=== PATIENT | male | born 1950 | race Caucasian/White ===

== ENCOUNTER 2017-09-27 22:55 | Emergency (ER) | payer OTHER, MEDICAID ==
[~2017-09-27] VITALS: Ht 172.7 cm; Wt 86.2 kg
[~2017-09-27 22:55] MED LIST: ACET-787 PO; CAPT25TA10 PO; GABA400C PO; ORE25 PO
--- NOTE | 2017-09-27 22:55 | NUR ---
PT JONATHAN DESIR, PREBOOK. TAKEN TO CHAIR E
--- NOTE | 2017-09-27 22:55 | NUR ---
67/M BIB [place] [employer] FOR PRE-BOOK. REPORTS 6/10 CHEST PAIN, SUDDEN ONSET, PRESSURE AND SOB X1 DAY. ALL LUNG SOUNSD CBTA 16RR EVEN AND UNLABORED. NO RESPIRATORY DISTRESS NOTED AT THIS TIME, SKIN IS WARM AND DRY. PT ABLE TO SPEAK AT FULL LENGTH WITHOUT DIFFICULTIES. PMH: HTN
[2017-09-27 23:08] VITALS: BP 110/68
--- NOTE | 2017-09-27 23:25 | NUR ---
PT RETURN FROM XRAY
[2017-09-27 23:39] VITALS: BP 119/72
--- NOTE | 2017-09-27 23:39 | NUR ---
Patient discharged with v/s stable. Written and verbal after care instructions given and explained. Patient verbalized understanding. Police with in custody. All questions addressed prior to discharge. Advised to follow up with PMD.
== END 2017-09-27 23:39 ==
LOC: MED 22:55
DX: Z02.89 Encounter for other administrative examinations (principal); I25.2 Old myocardial infarction; I10 Essential (primary) hypertension
CPT/HCPCS: 71045; 93005; 99284

== ENCOUNTER 2018-01-09 10:29 | Emergency (ER) | payer OTHER, MEDICAID ==
[~2018-01-09] VITALS: Ht 172.7 cm; Wt 96.6 kg
[2018-01-09 10:37] VITALS: BP 197/115
--- NOTE | 2018-01-09 10:48 | NUR ---
PT AMBUALTES TO BED 8
--- NOTE | 2018-01-09 11:00 | NUR ---
PATIENT PRESENTS TO ED WITH COMPLAINTS OF RIGHT LOWER LEG PAIN AND SWELLING DUE TO ANKLE MONITOR THAT WAS PLACED ON RIGHT ANKLE. FOOT APPEARS RED AND SWOLLEN LEADING UP TO CALF. PATIENTS FOOT HAS VERY STRONG FOUL ODOR WITH PEELING SKIN. PATIENT REPORTS PROBLEM IS ONGOING BEGINNING WHEN IT WAS PLACED. CAP REFILL ON 3RD TOE MORE THAN 3 SECONDS. PT DENIES ANY FEVER, CP, SOB, OR COUGH AT THIS TIME; PATIENT STATES PAIN OF 10/10 AT THIS TIME; PATIENT POSITIONED FOR COMFORT; HOB ELEVATED; BEDRAILS UP X1; BED DOWN. ER MD MADE AWARE OF PT STATUS.
[2018-01-09] MEDS ORDERED: FUROSEMIDE 40 MG TAB PO ONE ×2 (11:30→12:50)
--- NOTE | 2018-01-09 11:50 | NUR ---
PATIENT UP TO BATHROOM.
--- NOTE | 2018-01-09 12:45 | NUR ---
DR. CARTER REEVALUATING AT BEDSIDE.
[2018-01-09] MEDS ORDERED: POTASSIUM CHLORIDE 10 MEQ TABER PO ONE (12:50)
--- NOTE | 2018-01-09 12:51 | NUR ---
PATIENT SITTING UP EATING LUNCH
--- NOTE | 2018-01-09 13:29 | NUR ---
Patient discharged with v/s stable. Written and verbal after care instructions given and explained. Patient verbalized understanding. Ambulatory with steady gait. All questions addressed prior to discharge. Advised to follow up with PMD.
[2018-01-09 13:32] VITALS: BP 150/90
== END 2018-01-09 13:29 | disposition home or self-care (01) ==
LOC: MED 10:29
DX: R60.0 Localized edema (principal); I10 Essential (primary) hypertension; E11.40 Type 2 diabetes mellitus with diabetic neuropathy, unspecified; I25.2 Old myocardial infarction; Z79.899 Other long term (current) drug therapy
CPT/HCPCS: 99284

== ENCOUNTER 2018-02-01 15:19 | Inpatient (IN) | payer OTHER, MEDICAID ==
[~2018-02-01] VITALS: Ht 172.7 cm; Wt 108.9 kg
[2018-02-01 15:30] VITALS: BP 113/55
[2018-02-01] MEDS ORDERED: NACL 0.9% 1,000 ML IV ONE (15:40)
[2018-02-01] MEDS ORDERED: ONDANSETRON 4 MG/2 ML VIAL IVP ONE (15:40)
[2018-02-01] MEDS: THIAMINE 100 MG TAB PO SCH ×2 (16:04→16:09)
[2018-02-01 16:08] LABS: BASOPHILS % (AUTO) 0.7 % (0.0-2.0); EOSINOPHILS # (AUTO) 0.1 K/uL (0-0.4); HEMATOCRIT 38.6 % (36-52); HEMOGLOBIN 12.7 g/dL (12.0-18.0); LYMPHOCYTES # (AUTO) 1.5 K/uL (2.0-11.5); LYMPHOCYTES % (AUTO) 27.6 % (20.5-51.1); MEAN CORPUSCULAR HEMOGLOBIN 34 pg (27-31); MEAN CORPUSCULAR HGB CONC 33 g/dL (33-37); MEAN CORPUSCULAR VOLUME 103.2 fL (80-94); MONOCYTES # (AUTO) 0.6 K/uL (0.8-1.0); MONOCYTES % (AUTO) 12.1 % (1.7-9.3); NEUTROPHILS # (AUTO) 3.1 K/uL (1.8-7.7); NEUTROPHILS % (AUTO) 58.6 % (42.2-75.2); PLATELET COUNT (AUTO) 223 K/uL (140-450); RED BLOOD CELL COUNT(AUTO) 3.74 MIL/uL (4.20-6.10); RED CELL DISTRIBUTION WIDTH 16.2 % (11.6-13.7); WHITE BLOOD COUNT (AUTO) 5.2 K/uL (4.8-10.8)
[2018-02-01] MEDS: FOLIC ACID 1 MG TAB PO SCH ×2 (16:09→16:10)
[2018-02-01 16:31] LABS: PROTHROMBIN TIME 9.9 secs (10.8-13.4)
[2018-02-01 16:36] LABS: CARBON DIOXIDE 24.6 mmol/L (21-32); CREATININE 0.8 mg/dL (0.7-1.3); POTASSIUM 3.6 mmol/L (3.5-5.1)
[2018-02-01 16:41] LABS: ALBUMIN 3.4 g/dL (3.4-5.0); TOTAL BILIRUBIN 0.4 mg/dL (0.0-1.0)
[2018-02-01] MEDS ORDERED: LORazepam 0.5 MG TAB PO PRN (17:35)
[2018-02-01] MEDS ORDERED: ACETAMINOPHEN 325 MG TAB PO PRN (17:35)
[2018-02-01] MEDS ORDERED: MULTIVITAMIN-12 10 ML, THIAMINE 100 MG, MAGNESIUM SULFATE 50% 2,000 MG, FOLIC ACID 5 MG... IV ONE ×5 (17:35)
[2018-02-01] MEDS ORDERED: DOCUSATE SODIUM 100 MG GELCAP PO PRN (17:35)
[2018-02-01] MEDS ORDERED: ONDANSETRON 4 MG/2 ML VIAL IM/IVP PRN (17:35)
[2018-02-01] MEDS ORDERED: ZOLPIDEM 5 MG TAB PO PRN (17:35)
[2018-02-01 18:07] LABS: CHOL/HDL RATIO 2.1 (1-4.5); FREE T4 (FREE THYROXINE) 1.07 ng/dL (0.76-1.46); MAGNESIUM 2.2 mg/dL (1.8-2.4); PHOSPHORUS 3.3 mg/dL (2.5-4.9); THYROID STIMULATING HORMONE 0.63 uIU/mL (0.34-3.74)
[2018-02-01] MEDS ORDERED: LORazepam 2 MG/ML VIAL IVP PRN (19:00)
[2018-02-01 19:47] LABS: APPEARANCE,URINE CLEAR (CLEAR); BILIRUBIN,URINE NEGATIVE (NEGATIVE); BLOOD, URINE NEGATIVE (NEGATIVE); COLOR,URINE YELLOW (YELLOW); LEUKOCYTE ESTERASE ,URINE NEGATIVE (NEGATIVE); NITRITE, URINE NEGATIVE (NEGATIVE); PH,URINE 5.5 (5.0-9.0); UGLUCOSE NEGATIVE (NEGATIVE)
[2018-02-01 19:58] LABS: BARBITURATE, URINE NEG. ng/ml (NEG <=200); BENZODIAZEPINE, URINE NEG. ng/mL (NEG <=200); CANNABINOID, URINE POS. ng/mL (NEG <=50); COCAINE, URINE NEG. ng/mL (NEG <=300); OPIATE, URINE NEG. ng/mL (NEG <=2000); PHENCYCLIDINE SCREEN,URINE NEG. ng/mL (NEG <=25)
[2018-02-01] MEDS ORDERED: DEXTROSE 50% 50 ML SYR IVP PRN (20:40)
[2018-02-01] MEDS ORDERED: INSULIN LISPRO SLIDING SCALE 100 UNITS/ML VIAL SUBQ PRN (20:40)
[2018-02-01] MEDS: NACL 0.9% 1,000 ML IV SCH (21:00)
[2018-02-01] MEDS ORDERED: THIAMINE 200 MG/2 ML VIAL ONE (21:04)
[2018-02-01] MEDS ORDERED: FOLIC ACID 5 MG/ML SYR ONE (21:04)
[2018-02-01] MEDS ORDERED: MULTIVITAMIN-12 10 ML VIAL IV ONE (21:04)
[2018-02-01] MEDS: BLOOD GLUCOSE MONITORING 1 DEV DEV FS SCH (21:30)
[2018-02-01] MEDS ORDERED: LACTULOSE 20 GM/30 ML UDC PO SCH (23:00)
[2018-02-01 23:29] VITALS: BP 107/63
[2018-02-02] VITALS: BP 130/56
[2018-02-02] MEDS: NACL 0.9% 1,000 ML IV SCH ×4 (03:21→23:05)
[2018-02-02 04:00] VITALS: BP 174/102
[2018-02-02] MEDS ORDERED: CAPTOPRIL 25 MG TAB PO SCH ×2 (05:00→09:00)
[2018-02-02 05:54] LABS: BASOPHILS % (AUTO) 0.3 % (0.0-2.0); EOSINOPHILS % (AUTO) 0.5 % (0.0-4.0); HEMATOCRIT 42.3 % (36-52); HEMOGLOBIN 14.1 g/dL (12.0-18.0); LYMPHOCYTES # (AUTO) 1.2 K/uL (2.0-11.5); LYMPHOCYTES % (AUTO) 17.3 % (20.5-51.1); MEAN CORPUSCULAR HEMOGLOBIN 34 pg (27-31); MEAN CORPUSCULAR HGB CONC 33 g/dL (33-37); MEAN CORPUSCULAR VOLUME 103.2 fL (80-94); MONOCYTES # (AUTO) 0.9 K/uL (0.8-1.0); MONOCYTES % (AUTO) 12.4 % (1.7-9.3); NEUTROPHILS # (AUTO) 4.9 K/uL (1.8-7.7); NEUTROPHILS % (AUTO) 69.5 % (42.2-75.2); PLATELET COUNT (AUTO) 227 K/uL (140-450); RED CELL DISTRIBUTION WIDTH 16.3 % (11.6-13.7); WHITE BLOOD COUNT (AUTO) 7.1 K/uL (4.8-10.8)
[2018-02-02] MEDS: BLOOD GLUCOSE MONITORING 1 DEV DEV FS SCH ×4 (06:10→20:13)
[2018-02-02 06:21] LABS: ANION GAP 9.6 (8-16); CARBON DIOXIDE 26.2 mmol/L (21-32); CREATININE 0.7 mg/dL (0.7-1.3); POTASSIUM 3.8 mmol/L (3.5-5.1)
[2018-02-02 06:24] LABS: MAGNESIUM 1.8 mg/dL (1.8-2.4); PHOSPHORUS 2.3 mg/dL (2.5-4.9)
[2018-02-02 07:54] VITALS: BP 173/83
[2018-02-02] MEDS: GABAPENTIN 600 MG, GABAPENTIN 200 MG PO SCH ×6 (08:41→16:40)
[2018-02-02] MEDS: HYDROCHLOROTHIAZIDE 25 MG TAB PO SCH (08:42)
[2018-02-02] MEDS: CALCIUM CARB/VIT-D 500 MG/200 IU 1 TAB PO SCH (08:42)
[2018-02-02] MEDS: MULTIVITAMIN/MINERALS 1 TAB PO SCH (08:42)
[2018-02-02] MEDS: chlordiazePOXIDE 25 MG CAP PO SCH ×3 (08:42→16:41)
[2018-02-02] MEDS: THIAMINE 100 MG TAB PO SCH (08:43)
[2018-02-02] MEDS: CAPTOPRIL 25 MG TAB PO SCH (08:43)
[2018-02-02] MEDS: FOLIC ACID 1 MG TAB PO SCH (08:43)
[2018-02-02] MEDS ORDERED: LACTULOSE 20 GM/30 ML UDC PO SCH (09:00)
[2018-02-02] MEDS ORDERED: HYDROCHLOROTHIAZIDE 25 MG TAB PO SCH (09:00)
[2018-02-02] MEDS ORDERED: METOPROLOL 25 MG TAB PO SCH (09:00)
[2018-02-02] MEDS ORDERED: GABAPENTIN 100 MG CAP PO SCH (09:00)
[2018-02-02 12:00] VITALS: BP 156/90
[2018-02-02 16:00] VITALS: BP 160/97
[2018-02-02] MEDS: HYDROcodone/APAP 7.5/325 MG 1 TAB PO PRN (16:40)
[2018-02-02 20:00] VITALS: BP 159/88
[2018-02-02] MEDS: PROPRANOLOL 20 MG TAB PO SCH (20:14)
[2018-02-03] VITALS: BP 134/52
[2018-02-03 04:00] VITALS: BP 136/73
[2018-02-03] MEDS: BLOOD GLUCOSE MONITORING 1 DEV DEV FS SCH (05:59)
[2018-02-03 06:35] LABS: HEMATOCRIT 41.1 % (36-52); HEMOGLOBIN 13.6 g/dL (12.0-18.0); MEAN CORPUSCULAR HEMOGLOBIN 34 pg (27-31); MEAN CORPUSCULAR HGB CONC 33 g/dL (33-37); PLATELET COUNT (AUTO) 214 K/uL (140-450); RED BLOOD CELL COUNT(AUTO) 3.99 MIL/uL (4.20-6.10); RED CELL DISTRIBUTION WIDTH 15.7 % (11.6-13.7); WHITE BLOOD COUNT (AUTO) 5.3 K/uL (4.8-10.8)
[2018-02-03 07:02] LABS: ALBUMIN 3.2 g/dL (3.4-5.0); ANION GAP 9.6 (8-16); CARBON DIOXIDE 29.2 mmol/L (21-32); CREATININE 0.8 mg/dL (0.7-1.3); MAGNESIUM 1.7 mg/dL (1.8-2.4); PHOSPHORUS 3.5 mg/dL (2.5-4.9); POTASSIUM 3.8 mmol/L (3.5-5.1); TOTAL BILIRUBIN 0.9 mg/dL (0.0-1.0)
[2018-02-03 08:00] VITALS: BP 165/90
[2018-02-03 08:08] LABS: EOSINOPHILS % (MANUAL) 3 % (0-4); LYMPHOCYTES % (MANUAL) 19 % (20-46); MONOCYTES % (MANUAL) 20 % (5-12)
[2018-02-03] MEDS: GABAPENTIN 600 MG, GABAPENTIN 200 MG PO SCH ×2 (08:20)
[2018-02-03] MEDS: PROPRANOLOL 20 MG TAB PO SCH (08:20)
[2018-02-03] MEDS: CALCIUM CARB/VIT-D 500 MG/200 IU 1 TAB PO SCH (08:21)
[2018-02-03] MEDS: CAPTOPRIL 25 MG TAB PO SCH (08:21)
[2018-02-03] MEDS: FOLIC ACID 1 MG TAB PO SCH (08:21)
[2018-02-03] MEDS: HYDROCHLOROTHIAZIDE 25 MG TAB PO SCH (08:21)
[2018-02-03] MEDS: MULTIVITAMIN/MINERALS 1 TAB PO SCH (08:21)
[2018-02-03] MEDS: chlordiazePOXIDE 25 MG CAP PO SCH (08:21)
[2018-02-03] MEDS: THIAMINE 100 MG TAB PO SCH (08:22)
[2018-02-03] MEDS: NACL 0.9% 1,000 ML IV SCH (08:22)
[2018-02-03] MEDS: HYDROcodone/APAP 7.5/325 MG 1 TAB PO PRN (08:23)
[2018-02-03] MEDS ORDERED: PROP20TA29 PO (09:26)
[2018-02-03] MEDS ORDERED: THIA100T31 PO (09:26)
[2018-02-03] MEDS ORDERED: ORE25 PO (09:26)
[2018-02-03] MEDS ORDERED: MULT-1736 PO (09:26)
[2018-02-03] MEDS ORDERED: LIB25 PO (09:26)
== END 2018-02-03 11:47 | disposition home or self-care (01) | DRG 441 ==
LOC: MED 15:19 → MTU 17:35
PROVIDERS: ADMIT General Practice; ATTEND General Practice
DX: K72.90 Hepatic failure, unspecified without coma (principal); G92 Toxic encephalopathy; E44.1 Mild protein-calorie malnutrition; F10.129 Alcohol abuse with intoxication, unspecified; Y90.8 Blood alcohol level of 240 mg/100 ml or more; E11.65 Type 2 diabetes mellitus with hyperglycemia; B19.20 Unspecified viral hepatitis C without hepatic coma; K74.60 Unspecified cirrhosis of liver; F12.90 Cannabis use, unspecified, uncomplicated; Z68.36 Body mass index [BMI] 36.0-36.9, adult; D64.9 Anemia, unspecified; E83.51 Hypocalcemia; R74.0 Nonspecific elevation of levels of transaminase and lactic acid dehydrogenase [LDH]; I11.9 Hypertensive heart disease without heart failure; E66.01 Morbid (severe) obesity due to excess calories; E11.40 Type 2 diabetes mellitus with diabetic neuropathy, unspecified; F31.9 Bipolar disorder, unspecified; S39.91XA Unspecified injury of abdomen, initial encounter; X58.XXXA Exposure to other specified factors, initial encounter; Y93.89 Activity, other specified; Y92.89 Other specified places as the place of occurrence of the external cause; Y99.8 Other external cause status; E11.51 Type 2 diabetes mellitus with diabetic peripheral angiopathy without gangrene; G47.33 Obstructive sleep apnea (adult) (pediatric); E53.8 Deficiency of other specified B group vitamins; Z59.0 Homelessness
CPT/HCPCS: 36415; 71045; 76705; 80048; 80053; 80305; 81003; 82140; 82150; 82948; 83036; 83690; 83735; 83880; 84100; 84436; 84439; 84443; 84479; 84484; 85025; 85610; 85730; 87081; 93005; 93925; 93970; 96361; 96374; 99285; A9153; G0482; J1815; J2405; J3411; J3490; J7030; Q0092

== ENCOUNTER 2018-06-16 15:50 | Inpatient (IN) | payer OTHER, MEDICAID ==
[~2018-06-16] VITALS: Ht 172.7 cm; Wt 95.3 kg
[~2018-06-16 15:50] MED LIST changes: +LIB25 PO; +MULT-1736 PO; +PROP20TA29 PO; +THIA-34 PO
[2018-06-16 16:00] VITALS: BP 167/74
--- NOTE | 2018-06-16 16:15 | NUR ---
PT. CAME INTO THE ED DUE TO BILAT LEG PAIN. PT. STATES " I HAVE NEUROPATHY AND ABOUT 3 DAYS AGO THEY STARTED SWELLING AND HURTING VERY BAD". 10/10 PRESSURE DULL PAIN IN BILAT LOWER LEGS THAT RADIATE TO FEET. BILAT LEG AND FEET WARM TO TOUCH AND RED WITH 3+ SWELLING NON PITTING EDEMA. PT. HAS STEADY GAIT. RR EVEN AND UNLABORED. PT. STATES " WELL YESTERDAY THE SWELLING WAS WORSE AND I STARTED TO GET CHEST PAIN". DENIES ANY FEVERS OR CHILLS.DENIES ANY CP AT THIS TIME. CAP REFILL LESS THAN 3 SEC. ER MD NOTIFIED. AT BEDSIDE. WILL CONTINUE TO MONITOR. SAFETY PRECAUTIONS IMPLEMENTED.
--- NOTE | 2018-06-16 17:30 | NUR ---
PT. RESTING COMFORTABLY IN BED, RR EVEN AND UNLABORED. VSS. WILL CONTINUE TO MONITOR.
[2018-06-16] MEDS ORDERED: ASPIRIN 81 MG TAB.CHEW PO ONE (17:40)
[2018-06-16] MEDS ORDERED: NITROGLYCERIN 2% 1 GM PKT TP ONE (17:40)
[2018-06-16 18:04] LABS: BASOPHILS % (AUTO) 0.3 % (0.0-2.0); EOSINOPHILS % (AUTO) 0.2 % (0.0-4.0); HEMATOCRIT 41.3 % (36-52); HEMOGLOBIN 13.8 g/dL (12.0-18.0); LYMPHOCYTES # (AUTO) 1.4 K/uL (2.0-11.5); LYMPHOCYTES % (AUTO) 14.2 % (20.5-51.1); MEAN CORPUSCULAR HEMOGLOBIN 34 pg (27-31); MEAN CORPUSCULAR HGB CONC 33 g/dL (33-37); MEAN CORPUSCULAR VOLUME 101.1 fL (80-94); MONOCYTES # (AUTO) 1.2 K/uL (0.8-1.0); MONOCYTES % (AUTO) 12.7 % (1.7-9.3); NEUTROPHILS # (AUTO) 6.9 K/uL (1.8-7.7); NEUTROPHILS % (AUTO) 72.6 % (42.2-75.2); PLATELET COUNT (AUTO) 192 K/uL (140-450); RED BLOOD CELL COUNT(AUTO) 4.09 MIL/uL (4.20-6.10); RED CELL DISTRIBUTION WIDTH 16.2 % (11.6-13.7); WHITE BLOOD COUNT (AUTO) 9.5 K/uL (4.8-10.8)
[2018-06-16 18:16] LABS: ANION GAP 12.3 (8-16); CARBON DIOXIDE 30.4 mmol/L (21-32); CREATININE 0.9 mg/dL (0.7-1.3); POTASSIUM 3.7 mmol/L (3.5-5.1)
[2018-06-16 18:23] LABS: TOTAL BILIRUBIN 0.9 mg/dL (0.0-1.0)
--- NOTE | 2018-06-16 18:37 | NUR ---
TIM CALLED W/ CRITICAL TROPONIN 0.395
[2018-06-16] MEDS ORDERED: NACL 0.9% 1,000 ML IV SCH (18:57)
[2018-06-16] MEDS ORDERED: HYDROcodone/APAP 5/325 MG 1 TAB TAB PO PRN (19:00)
[2018-06-16] MEDS ORDERED: LORazepam 2 MG/ML VIAL IM/IVP PRN (19:00)
[2018-06-16] MEDS ORDERED: ONDANSETRON 4 MG/2 ML VIAL IM/IVP PRN (19:00)
[2018-06-16] MEDS ORDERED: DOCUSATE SODIUM 100 MG GELCAP PO PRN (19:00)
[2018-06-16] MEDS ORDERED: ACETAMINOPHEN 325 MG TAB PO PRN (19:00)
[2018-06-16] MEDS ORDERED: ZOLPIDEM 5 MG TAB PO PRN (19:00)
[2018-06-16] MEDS ORDERED: NITROGLYCERIN 0.4 MG TAB SL PRN (19:00)
[2018-06-16 19:12] LABS: APPEARANCE,URINE CLEAR (CLEAR); BILIRUBIN,URINE NEGATIVE (NEGATIVE); BLOOD, URINE TRACE-I (NEGATIVE); COLOR,URINE YELLOW (YELLOW); LEUKOCYTE ESTERASE ,URINE NEGATIVE (NEGATIVE); NITRITE, URINE NEGATIVE (NEGATIVE); UGLUCOSE NEGATIVE (NEGATIVE)
[2018-06-16 19:13] LABS: RBC,URINE 0-5 (RARE) /HPF (0-5); WBC,URINE NONE SEEN /HPF (0-5)
--- NOTE | 2018-06-16 19:19 | NUR ---
pt to ct scan via [facility]
--- NOTE | 2018-06-16 19:20 | NUR ---
Pt report given to RUDY GILBERT . Transfer of care at this time.
[2018-06-16] MEDS ORDERED: hePARIN / DEXT 5% PREMIX 250 ML IV SCH ×2 (19:25→20:50)
[2018-06-16] MEDS ORDERED: HEPARIN PER PHARMACY MC PRN (19:25)
--- NOTE | 2018-06-16 19:30 | NUR ---
PT IN BED SLEEPING, EASILY AROUSABLE, VSS, PENDING ADMISSION.
[2018-06-16] MEDS ORDERED: DEXTROSE 50% 50 ML SYR IVP PRN (19:35)
[2018-06-16] MEDS ORDERED: INSULIN LISPRO SLIDING SCALE 100 UNITS/ML VIAL SUBQ PRN (19:35)
[2018-06-16] MEDS ORDERED: LORazepam 2 MG/ML VIAL IVP PRN (19:55)
[2018-06-16] MEDS ORDERED: ALBUTEROL SULFATE/IPRATROPIU 3 ML SOL IH PRN (19:55)
--- NOTE | 2018-06-16 19:55 | NUR ---
Patient will be admitted to care of DR FINCH. Admited to TELE. Will go to [id number]. Belongings list completed. Report to RUDY COX.
[2018-06-16 20:26] LABS: PROTHROMBIN TIME 9.4 secs (10.8-13.4)
--- NOTE | 2018-06-16 20:40 | NUR ---
RECEIVED REPORT FROM CHARGE NURSE ON DUTY . PT. AWAKE AND ALERT. ACCOMPANIED BY . ABLE TO VERBALIZE NEEDS WELL. CALL LIGHT WITHIN REACH AND CARE PLANS FOR THE NIGHT DISCUSSED WITH THEM. DX. OF CHEST PAIN. TELEMETRY MONITORING. BILATERAL LOWER EXTREMITIES WITH EDEMA NOTED. SKIN INTACT. IVF TO RIGHT HAND # 22 INTACT AND WITH GOOD BLOOD RETURN.
[2018-06-16 20:42] LABS: CHOL/HDL RATIO 1.7 (1-4.5); MAGNESIUM 1.7 mg/dL (1.8-2.4); PHOSPHORUS 3.5 mg/dL (2.5-4.9); THYROID STIMULATING HORMONE 2.1 uIU/mL (0.34-3.74)
[2018-06-16 20:54] VITALS: BP 125/71
[2018-06-16] MEDS ORDERED: METOPROLOL 25 MG TAB PO SCH (21:00)
[2018-06-16] MEDS: MORPHINE SULFATE 2 MG/ML SYR IVP PRN (21:09)
[2018-06-16] MEDS: ATORVASTATIN 20 MG TAB PO SCH (21:10)
[2018-06-16] MEDS: BLOOD GLUCOSE MONITORING 1 DEV DEV FS SCH (21:13)
[2018-06-16 21:28] LABS: BARBITURATE, URINE NEG. ng/ml (NEG <=200); BENZODIAZEPINE, URINE NEG. ng/mL (NEG <=200); CANNABINOID, URINE NEG. ng/mL (NEG <=50); COCAINE, URINE NEG. ng/mL (NEG <=300); OPIATE, URINE NEG. ng/mL (NEG <=2000); PHENCYCLIDINE SCREEN,URINE NEG. ng/mL (NEG <=25)
--- NOTE | 2018-06-16 22:19 | NUR ---
TRACK LAYER IN HERE AND PER RESIDENT MD TO WAIT ON THE ORDER SHE HAD FOR HEPARIN DRIP TILL TRACK LAYER GIVES THE OK TO START.
[2018-06-16] MEDS ORDERED: MAG SULF 2000 MG/WATER PREMIX 50 ML IV SCH (23:00)
--- NOTE | 2018-06-16 23:43 | NUR ---
BUILDING EQUIPMENT INSPECTOR ORDERED TO NOT GIVE HEPARIN DRIP AND INSTEAD WILL ORDER LOVENOX SQ. CHARGE NURSE AWARE. INFORMED PT. RESIDENT MD AWARE TOO.
[2018-06-17] VITALS (7 sets, daily range): BP systolic 102–147; BP diastolic 52–82
[2018-06-17] MEDS ORDERED: ENOXAPARIN 100 MG/ML SYR SUBQ SCH
[2018-06-17] MEDS ORDERED: ENOXAPARIN 40 MG/0.4 ML SYR SUBQ ONE (00:25)
[2018-06-17] MEDS ORDERED: ENOXAPARIN 60 MG/0.6 ML SYR SUBQ ONE (00:26)
--- NOTE | 2018-06-17 04:45 | NUR ---
SLEEPING WELL. TELEMETRY MONITORING.
[2018-06-17] MEDS: PANTOPRAZOLE 40 MG TABEC PO SCH (05:18)
--- NOTE | 2018-06-17 05:20 | NUR ---
BEEN SLEEPING WELL. NO COMPLAINTS AT THIS TIME. ABLE TO VERBALIZE NEEDS WELL. TELEMETRY MONITORING.
[2018-06-17 05:58] LABS: BASOPHILS % (AUTO) 0.3 % (0.0-2.0); EOSINOPHILS # (AUTO) 0.1 K/uL (0-0.4); HEMATOCRIT 39.8 % (36-52); HEMOGLOBIN 13.2 g/dL (12.0-18.0); LYMPHOCYTES # (AUTO) 1.2 K/uL (2.0-11.5); LYMPHOCYTES % (AUTO) 18.8 % (20.5-51.1); MEAN CORPUSCULAR HEMOGLOBIN 34 pg (27-31); MEAN CORPUSCULAR HGB CONC 33 g/dL (33-37); MEAN CORPUSCULAR VOLUME 101.2 fL (80-94); MONOCYTES # (AUTO) 0.9 K/uL (0.8-1.0); MONOCYTES % (AUTO) 14.4 % (1.7-9.3); NEUTROPHILS # (AUTO) 4.3 K/uL (1.8-7.7); NEUTROPHILS % (AUTO) 65.5 % (42.2-75.2); PLATELET COUNT (AUTO) 184 K/uL (140-450); RED BLOOD CELL COUNT(AUTO) 3.93 MIL/uL (4.20-6.10); RED CELL DISTRIBUTION WIDTH 16.1 % (11.6-13.7); WHITE BLOOD COUNT (AUTO) 6.5 K/uL (4.8-10.8)
[2018-06-17] MEDS ORDERED: ALBUTEROL SULFATE/IPRATROPIU 3 ML SOL IH SCH (06:00)
[2018-06-17] MEDS: BLOOD GLUCOSE MONITORING 1 DEV DEV FS SCH ×4 (06:29→20:35)
--- NOTE | 2018-06-17 07:21 | NUR ---
AWAKE. ENDORSED TO THE NEXT RN FOR CONTINUITY OF CARE. ORIENTED. ABLE TO VERBALIZE NEEDS WELL.
--- NOTE | 2018-06-17 07:21 | NUR ---
RECEIVED BEDSIDE REPORT FROM HAMMER DRIVER NURSE. PATIENT IS AWAKE, ALERT AND ORIENTEDX4. NO SIGNS OF DISTRESS ON RA. HE IS AMBULATORY. HE HAS CUTS ON HIS FOOT FROM WALKING W ONLY SOCKS, PATIENT IS HOMELESS. PITTING +1 EDEMA JOANNA FEET. TELE MONITOR IN PLACE. IV ON L FA AND L HAND 22G SALINE LOCK. CLEAN, DRY AND INTACT. PATIENT IS NPO FOR POSSIBLE LEXISCAN TODAY. WILL CONTINUE TO MONITOR THE PATIENT. BED IN LOW POSITION. CALL LIGHT WITHIN REACH. MANAGER REQUIREMENTS AT BEDSIDE.
[2018-06-17 08:12] LABS: POTASSIUM 3.4 mmol/L (3.5-5.1)
[2018-06-17 08:13] LABS: CARBON DIOXIDE 27.4 mmol/L (21-32); CREATININE 0.7 mg/dL (0.7-1.3)
[2018-06-17 08:14] LABS: MAGNESIUM 2.4 mg/dL (1.8-2.4); PHOSPHORUS 3.9 mg/dL (2.5-4.9)
--- NOTE | 2018-06-17 08:40 | NUR ---
PATIENT HAS BEEN SCREENED AND CATEGORIZED MODERATE NUTRITION RISK. PATIENT WILL BE SEEN WITHIN 3-5 DAYS OF ADMISSION. 06/19/18 06/21/[address]
[2018-06-17] MEDS ORDERED: LISINOPRIL 5 MG TAB PO SCH (09:00)
[2018-06-17] MEDS ORDERED: GABAPENTIN 100 MG CAP PO SCH (09:00)
[2018-06-17] MEDS ORDERED: CAPTOPRIL 25 MG TAB PO SCH (09:00)
--- NOTE | 2018-06-17 10:00 | NUR ---
PATIENT WENT TO THE SHOWER WITHOUT LETTING ME KNOW. NO DOCTORS ORDER. IVS ARE CLEAN AND INTACT. BUT HAD TO REINFORCE IT. EDUCATED PATIENT ON THE IMPORTANCE OF ASKING TO GO TO THE SHOWER FIRST D/T CARDIAC MONITORING. HE APOLOGIZED AND VERBALIZED UNDERSTANDING
[2018-06-17] MEDS: GABAPENTIN 600 MG, GABAPENTIN 200 MG PO SCH ×6 (10:09→16:33)
[2018-06-17] MEDS: RAMIPRIL 5 MG CAP PO SCH (10:09)
[2018-06-17] MEDS: MULTIVITAMIN 1 TAB PO SCH (10:09)
[2018-06-17] MEDS: THIAMINE 100 MG TAB PO SCH (10:09)
[2018-06-17] MEDS: FOLIC ACID 1 MG TAB PO SCH (10:10)
[2018-06-17] MEDS: HYDROCHLOROTHIAZIDE 25 MG TAB PO SCH (10:10)
[2018-06-17] MEDS: chlordiazePOXIDE 25 MG CAP PO SCH ×4 (10:10→16:29)
[2018-06-17] MEDS: ASPIRIN 81 MG TAB.CHEW PO SCH (10:10)
[2018-06-17] MEDS: ENOXAPARIN 100 MG/ML SYR SUBQ SCH ×2 (10:14→20:59)
--- NOTE | 2018-06-17 10:15 | NUR ---
ADMINISTERED MEDS. PATIENT TOLERATED WELL. MACHINE PULLER AT BEDSIDE. WILL CONTINUE TO MONITOR
[2018-06-17] MEDS ORDERED: REGADENOSON 0.4 MG/5 ML SYR IV SCH (10:55)
--- NOTE | 2018-06-17 11:50 | NUR ---
PATIENT PICKED UP IN WHEELCHAIR BY WA TECH.
[2018-06-17] MEDS: ALBUTEROL SULFATE/IPRATROPIU 3 ML SOL IH SCH ×2 (13:00→19:05)
--- NOTE | 2018-06-17 15:00 | NUR ---
PATIENT BACK FROM [facility] IN STABLE CONDITION.
[2018-06-17] MEDS ORDERED: POTASSIUM CHLORIDE 20% 40 MEQ/15 ML UDC PO SCH (15:15)
[2018-06-17] MEDS: amLODIPine 5 MG TAB PO SCH (15:25)
[2018-06-17] MEDS: MORPHINE SULFATE 2 MG/ML SYR IVP PRN (15:28)
--- NOTE | 2018-06-17 15:31 | NUR ---
ADMINISTERED PRN PAIN MED FOR JOANNA FOOT PAIN. PATIENT TOLERATED WELL. PATIENT CURRENTLY EATING. WILL CONTINUE TO MONITOR THE PATIENT
--- NOTE | 2018-06-17 16:35 | NUR ---
ADMINISTERED MEDS. PATIENT TOLERATED WELL. WILL CONTINUE TO MONITOR THE PATIENT.
--- NOTE | 2018-06-17 16:55 | NUR ---
CHANGED DRESSINGS FOR IVS. IVS ARE REINFORCED AND PATENT. GAVE PATIENT TOWELS. AT BEDSIDE TO HELP W BEDBATH
[2018-06-17] MEDS: HYDRAGUARD CREAM TP SCH (17:21)
--- NOTE | 2018-06-17 17:21 | NUR ---
ADMINISTERED MEDS. PATIENT TOLERATED WELL. WILL CONTINUE TO MONITOR PATIENT.
--- NOTE | 2018-06-17 18:50 | NUR ---
PATIENT SITTING IN BED. NO SIGNS OF DISTRESS. AT BEDSIDE. WILL CONTINUE TO MONITOR THE PATIENT
--- NOTE | 2018-06-17 19:20 | NUR ---
GAVE BEDSIDE REPORT TO BAND DIRECTOR NURSE. PATIENT ENDORSED IN STABLE CONDITION.
--- NOTE | 2018-06-17 19:21 | NUR ---
RECEIVED PT IN STABLE CONDITION FROM AM NURSE. AWAKE,ALERT AND ORIENTED X4. ON TELE-SR. NO C/O ANY DISCOMFORT NOR PAIN NOTED AT THIS TIME. WITH HL ON LT HAND #22 AND LT FA #22 ALSO. BOTH ARE CLEAR AND PATENT. PLAN OF CARE DISCUSSED AND VERBALIZED UNDERSTANDING. BED ON LOW POSITION, FREQUENT ROUNDS NEEDED. CALL LIGHT AND URINAL PLACED WITHIN EASY REACH. INSTRUCTED TO CALL FOR ANY ASSISTANCE. WILL CONTINUE TO MONITOR.
[2018-06-17] MEDS ORDERED: FUROSEMIDE 20 MG TAB PO SCH (19:30)
[2018-06-17] MEDS: ATORVASTATIN 20 MG TAB PO SCH (20:31)
--- NOTE | 2018-06-17 22:24 | NUR ---
MADE ROUNDS. PT ASLEEP. NO S/S OF ANY DISCOMOFORT NOR PAIN NOTED. WILL CONTINUE TO MONITOR.
--- NOTE | 2018-06-18 00:30 | NUR ---
PT ASLEEP. NO S/S OF NAY DISCOMFORT NOT PAIN NOTED. WILL CONTINUE TO MONITOR.
--- NOTE | 2018-06-18 03:10 | NUR ---
PT UP TO THE BATHROOM ,VOIDED. NO C/O ANY DISCOMFORT NOTED.
[2018-06-18 04:15] VITALS: BP 136/65
[2018-06-18 05:33] LABS: BASOPHILS % (AUTO) 0.5 % (0.0-2.0); EOSINOPHILS # (AUTO) 0.1 K/uL (0-0.4); EOSINOPHILS % (AUTO) 0.9 % (0.0-4.0); HEMATOCRIT 41.2 % (36-52); HEMOGLOBIN 13.7 g/dL (12.0-18.0); LYMPHOCYTES # (AUTO) 1.7 K/uL (2.0-11.5); LYMPHOCYTES % (AUTO) 23.4 % (20.5-51.1); MEAN CORPUSCULAR HEMOGLOBIN 34 pg (27-31); MEAN CORPUSCULAR HGB CONC 33 g/dL (33-37); MEAN CORPUSCULAR VOLUME 101.9 fL (80-94); MONOCYTES # (AUTO) 0.9 K/uL (0.8-1.0); MONOCYTES % (AUTO) 13.1 % (1.7-9.3); NEUTROPHILS # (AUTO) 4.5 K/uL (1.8-7.7); NEUTROPHILS % (AUTO) 62.1 % (42.2-75.2); PLATELET COUNT (AUTO) 184 K/uL (140-450); RED BLOOD CELL COUNT(AUTO) 4.04 MIL/uL (4.20-6.10); RED CELL DISTRIBUTION WIDTH 16.5 % (11.6-13.7); WHITE BLOOD COUNT (AUTO) 7.2 K/uL (4.8-10.8)
[2018-06-18 05:45] LABS: MAGNESIUM 2.1 mg/dL (1.8-2.4); PHOSPHORUS 4.9 mg/dL (2.5-4.9)
[2018-06-18] MEDS: BLOOD GLUCOSE MONITORING 1 DEV DEV FS SCH ×2 (06:00→12:28)
[2018-06-18] MEDS: PANTOPRAZOLE 40 MG TABEC PO SCH (06:40)
--- NOTE | 2018-06-18 07:20 | NUR ---
RECEIVED BEDSIDE REPORT FROM PM NURSE KYLE. PT AWAKE, VERBALLY RESPONSIVE, NO C/O PAIN. RESPIRATIONS EVEN & UNLABORED. CALL LIGHT WITHIN.
[2018-06-18] MEDS ORDERED: ATOR20TA40 PO (07:52)
[2018-06-18] MEDS ORDERED: FURO20TA8 PO (07:52)
[2018-06-18] MEDS ORDERED: ASPI81CT95 PO (07:52)
[2018-06-18] MEDS ORDERED: PANT40EC28 PO (07:52)
[2018-06-18] MEDS ORDERED: AMLO5TAB4 PO (07:52)
[2018-06-18 08:00] VITALS: BP 132/83
[2018-06-18] MEDS: ALBUTEROL SULFATE/IPRATROPIU 3 ML SOL IH SCH ×2 (08:43→13:27)
--- NOTE | 2018-06-18 08:55 | NUR ---
RECEIVED PATIENT ON ROOM AIR, O2 SAT 98%. BREATHING TREATMENT ADMINISTERED. PATIENT TOLERATED TX WELL, NO ADVERSE SIDE EFFECTS. NO RESPIRATORY DISTRESS NOTED AT THIS TIME. WILL CONTINUE TO MONITOR.
[2018-06-18] MEDS: GABAPENTIN 600 MG, GABAPENTIN 200 MG PO SCH ×4 (09:00→13:46)
[2018-06-18] MEDS: HYDRAGUARD CREAM TP SCH (09:00)
[2018-06-18] MEDS ORDERED: FUROSEMIDE 20 MG TAB PO SCH (09:00)
[2018-06-18] MEDS: RAMIPRIL 5 MG CAP PO SCH (09:00)
[2018-06-18] MEDS: chlordiazePOXIDE 25 MG CAP PO SCH ×2 (09:01→13:46)
[2018-06-18] MEDS: THIAMINE 100 MG TAB PO SCH (09:01)
[2018-06-18] MEDS: ASPIRIN 81 MG TAB.CHEW PO SCH (09:01)
[2018-06-18] MEDS: MULTIVITAMIN 1 TAB PO SCH (09:01)
[2018-06-18] MEDS: FOLIC ACID 1 MG TAB PO SCH (09:01)
[2018-06-18] MEDS: HYDROCHLOROTHIAZIDE 25 MG TAB PO SCH (09:02)
[2018-06-18] MEDS: ENOXAPARIN 100 MG/ML SYR SUBQ SCH (09:06)
--- NOTE | 2018-06-18 09:30 | NUR ---
PT TOOK SHOWER, ASSISTED BY SPOUSE. PT ABLE TO AMB WITH SLOW BUT STEADY GAIT. AMB BACK TO ROOM. LEFT HAND & LEFT FA IV SITES INTACT & ASYMPTOMATIC. CALL LIGHT WITHIN REACH. PT DENIES ANY DISCOMFORT.
[2018-06-18] MEDS ORDERED: POTASSIUM CHLORIDE 20% 40 MEQ/15 ML UDC PO SCH (11:21)
[2018-06-18 12:00] VITALS: BP 109/72
--- NOTE | 2018-06-18 12:00 | NUR ---
VERBAL & WRITTEN DISCHARGE INSTRUCTIONS PROVIDED TO PT. VERBALIZED UNDERSTANDING. AT BEDSIDE AGREE WITH DISCHARGE PLANS. Addendum: 06/18/18 at 1538 by Violet Blake RN WRONG TIME INPUT. OMIT ABOVE NOTE. EVENT OCCURED @ 1400 ON 06/18/18.
[2018-06-18] MEDS: amLODIPine 5 MG TAB PO SCH (12:27)
--- NOTE | 2018-06-18 13:38 | NUR ---
SCHEDULED BREATHING TREATMENT ADMINISTERED. TOLERATED TX WELL, NO ADVERSE SIDE EFFECTS. NO RESPIRATORY DISTRESS NOTED AT THIS TIME. WILL CONTINUE TO MONITOR.
--- NOTE | 2018-06-18 14:00 | NUR ---
VERBAL & WRITTEN DISCHARGE INSTRUCTIONS PROVIDED TO PT. VERBALIZED UNDERSTANDING. AT BEDSIDE AGREE WITH DISCHARGE PLANS.
[2018-06-18 14:18] LABS: ANION GAP 12.8 (8-16); POTASSIUM 4.8 mmol/L (3.5-5.1)
[2018-06-18 14:19] LABS: CREATININE 0.9 mg/dL (0.7-1.3)
[2018-06-18] MEDS ORDERED: ACET-8386 PO (14:47)
[2018-06-18] MEDS ORDERED: ACET-2619 PO (14:47)
--- NOTE | 2018-06-18 15:00 | NUR ---
PT DISCHARGED AT THIS TIME. ABLE TO AMB OFF UNIT WITH SLOW STEADY GAIT, ACCOMPANIED BY . NO C/O DISCOMFORT UPON DISCHARGE. ALL BELONGINGS WITH PT. NAME BAND REMOVED.
--- NOTE | 2018-06-18 15:42 | NUR ---
Teamsite Developer Note: requested for Box Press Operator to evaluate patient for assisted living facility placement. I met with patient and patient's Nelda Lam at bedside. Per patient, him and his currently live in their car and are planning to return to their previous living arrangement upon discharge. He reported he receives about $1,017 from SSI monthly. Patient asked me if I could assist them with housing. I asked him which type of housing they were interested on, he stated he doesn't want to be placed in a correction facility nor an assisted living facility because the majority of his SSI funds will be collected by facilities. He reported he doesn't want to pay for housing expenses. We explored room and board option but explained to him these type of places require individuals to pay expenses. He stated he would prefer to return to his previous living arrangement (car) upon discharge. He was not interested in going to [facility] [place] [facility] either.
== END 2018-06-18 15:00 | disposition home or self-care (01) | DRG 206 ==
LOC: MED 15:50 → MTU 18:57
PROVIDERS: ADMIT General Practice; ATTEND General Practice
DX: M94.0 Chondrocostal junction syndrome [Tietze] (principal); J98.11 Atelectasis; E11.42 Type 2 diabetes mellitus with diabetic polyneuropathy; E11.51 Type 2 diabetes mellitus with diabetic peripheral angiopathy without gangrene; E11.65 Type 2 diabetes mellitus with hyperglycemia; E66.01 Morbid (severe) obesity due to excess calories; B19.20 Unspecified viral hepatitis C without hepatic coma; K21.9 Gastro-esophageal reflux disease without esophagitis; I10 Essential (primary) hypertension; G47.30 Sleep apnea, unspecified; F12.90 Cannabis use, unspecified, uncomplicated; M79.672 Pain in left foot; M79.671 Pain in right foot; D53.9 Nutritional anemia, unspecified; G89.29 Other chronic pain; E87.6 Hypokalemia; F10.10 Alcohol abuse, uncomplicated; Z79.899 Other long term (current) drug therapy; I25.2 Old myocardial infarction; Z86.73 Personal history of transient ischemic attack (TIA), and cerebral infarction without residual deficits; Z68.36 Body mass index [BMI] 36.0-36.9, adult; Z59.0 Homelessness
CPT/HCPCS: 36415; 70450; 71045; 73620; 80048; 80053; 80305; 81001; 82140; 82948; 83036; 83690; 83735; 83880; 84100; 84134; 84443; 84484; 85025; 85610; 85730; 87081; 93005; 93017; 93970; 94640; 99285; A9500; A9502; G0482; J1650; J1815; J2270; J2785; J3475; J7030; J7620; Q0092

== ENCOUNTER 2018-06-22 19:56 | Emergency (ER) | payer MEDICAID, OTHER ==
[~2018-06-22] VITALS: Ht 172.7 cm; Wt 99.8 kg
[~2018-06-22 19:56] MED LIST changes: +ACET-2619 PO; -ACET-787 PO; +ACET-8386 PO; +AMLO5TAB4 PO; +ASPI81CT95 PO; +ATOR20TA40 PO; +FURO20TA8 PO; -LIB25 PO; +PANT40EC28 PO
[2018-06-22 20:02] VITALS: BP 140/108
[2018-06-22] MEDS ORDERED: KETAMINE 10 MG/ML UD SYR **ER IVP ONE ×2 (20:40→21:05)
--- NOTE | 2018-06-22 20:55 | NUR ---
EKG PERFORMED AT BEDSIDE. PT COVERED IN BLANKET DURING PROCEDURE.
--- NOTE | 2018-06-22 21:10 | NUR ---
68/M BIB , S/P FALL IN BATHROOM. STATED THAT SHE FOUND PT IN THE RESTROOM FLOOR. PT STATED THAT HE SLIPPED AND FELL WHEN HE WAS ABOUT TO SHOWER. PT AOX4, GCS 15, PERRLA, SLURRED SPEECH, PT SMELLS OF ALCOHOL, REPORTS THAT HE DRANK AFTER THE FALL. BRUISING AND SWELLING NOTED ON L PERIORBITAL AREA, SMALL ABRASION NOTED ON L EYEBROW. LARGE BRUISING NOTED ON L ABD. PT REPORTS 10/10 R SHOULDER PAIN AT THIS TIME. LUNG SOUNDS CLEAR BL. BS ACTIVE X4, ABD SOFT ROUND NONTENDER. PT DENIES CP, SOB, N/V. HX HTN, HLD, NEUROPATHY
[2018-06-22 21:12] LABS: BASOPHILS % (AUTO) 0.1 % (0.0-2.0); EOSINOPHILS % (AUTO) 0.1 % (0.0-4.0); HEMATOCRIT 39.6 % (36-52); HEMOGLOBIN 13.2 g/dL (12.0-18.0); LYMPHOCYTES # (AUTO) 0.4 K/uL (2.0-11.5); MEAN CORPUSCULAR HEMOGLOBIN 34 pg (27-31); MEAN CORPUSCULAR HGB CONC 34 g/dL (33-37); MEAN CORPUSCULAR VOLUME 101.5 fL (80-94); MONOCYTES # (AUTO) 0.8 K/uL (0.8-1.0); MONOCYTES % (AUTO) 7.3 % (1.7-9.3); NEUTROPHILS # (AUTO) 9.8 K/uL (1.8-7.7); NEUTROPHILS % (AUTO) 88.5 % (42.2-75.2); PLATELET COUNT (AUTO) 207 K/uL (140-450); RED CELL DISTRIBUTION WIDTH 16.2 % (11.6-13.7); WHITE BLOOD COUNT (AUTO) 11.1 K/uL (4.8-10.8)
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
--- NOTE | 2018-06-22 21:17 | NUR ---
30MG/3ML KETAMINE WAS REMOVED FROM PYXIS, DOCUMENTED WASTE 20MG/2ML KETAMINE WITH RUDY GILBERT ON PYXIS, BUT DID NOT WASTE MED YET. PER ER MD, ORDER CHANGED TO GIVE 30MG KETAMINE IVP. ADMINISTERED 30MG KETAMINE IVP FOR 5 MINS.
--- NOTE | 2018-06-22 21:20 | NUR ---
KIMMY DELAROSA AT BEDSIDE WITH EMT FOR R SHOULDER DISLOCATION. PT TOLERATED WELL, REPORTS RELIEF IN PAIN AT THIS TIME. XR AND CT CALLED.
--- NOTE | 2018-06-22 21:24 | NUR ---
LRG SIZE SLING PLACED ON PT R ARM, +CSM.
[2018-06-22 21:29] LABS: ANION GAP 17.7 (8-16); CARBON DIOXIDE 26.9 mmol/L (21-32); CREATININE 0.7 mg/dL (0.7-1.3); POTASSIUM 3.6 mmol/L (3.5-5.1)
[2018-06-22 21:36] LABS: ALBUMIN 4.2 g/dL (3.4-5.0); TOTAL BILIRUBIN 0.5 mg/dL (0.0-1.0)
[2018-06-22 21:39] LABS: PROTHROMBIN TIME 9.3 secs (10.8-13.4)
--- NOTE | 2018-06-22 23:02 | NUR ---
PT RESTING IN BED, RR EVEN AND UNLABORED, VSS, PT REPORTS 2/10 R SHOULDER PAIN AT THIS TIME. ALL NEEDS MET.
--- NOTE | 2018-06-23 00:52 | NUR ---
PT RESTING IN BED, RR EVEN AND UNLABORED. VS NOTED. PT REPORTS 2/10 TOLERABLE R SHOULDER PAIN AT THIS TIME. ALL NEEDS MET.
--- NOTE | 2018-06-23 00:55 | NUR ---
PT PENDING DISCHARGE, CALLED PT'S FAMILY, NO ANSWER, LEFT VOICEMAIL, WILL FOLLOW UP.
--- NOTE | 2018-06-23 01:07 | NUR ---
CALLED RUIZ [phone], MADE HER AWARE THAT PT IS READY TO BE DISCHARGED, ETA 15 MINS.
[2018-06-23 01:45] VITALS: BP 148/64
== END 2018-06-23 01:45 | disposition home or self-care (01) ==
LOC: MED 19:56
DX: S43.004A Unspecified dislocation of right shoulder joint, initial encounter (principal); S00.83XA Contusion of other part of head, initial encounter; E11.9 Type 2 diabetes mellitus without complications; I10 Essential (primary) hypertension; F10.10 Alcohol abuse, uncomplicated; F17.210 Nicotine dependence, cigarettes, uncomplicated; Z86.73 Personal history of transient ischemic attack (TIA), and cerebral infarction without residual deficits; Z79.82 Long term (current) use of aspirin; Z79.899 Other long term (current) drug therapy; W18.30XA Fall on same level, unspecified, initial encounter; Y93.89 Activity, other specified; Y92.89 Other specified places as the place of occurrence of the external cause; Y99.8 Other external cause status
CPT/HCPCS: 23650; 36415; 70450; 71045; 72125; 73030; 74177; 80053; 80305; 84484; 85025; 85610; 85730; 86886; 86900; 86901; 90471; 90715; 93005; 96374; 99284; G0482; Q0092; Q9967

== ENCOUNTER 2018-07-13 00:24 | Emergency (ER) | payer OTHER ==
[~2018-07-13] VITALS: Ht 172.7 cm; Wt 95.8 kg
[2018-07-13 00:49] VITALS: BP 128/77
--- NOTE | 2018-07-13 02:09 | NUR ---
PT BROUGHT TO BED 7 BY WHEELCHAIR
--- NOTE | 2018-07-13 02:10 | NUR ---
WHEELCHAIR ASSIST TO BED 7
--- NOTE | 2018-07-13 02:35 | NUR ---
PT PRESENTS TO ED WITH C/O R SHOULDER PAIN S/P FALL X 3 WEEKS AGO. PT PRESENTS TO ED UNDER INFLUENCE OF ETOH EVIDENCED BY SLURRING OF WORDS AND SMELL OF ETOH PRESENT. ROM PRESENT TO SHOULDER, CMS INTACT. PT PLACED INTO BED, PENDING MD NGO.
[2018-07-13] MEDS ORDERED: IBUPROFEN 600 MG TAB PO ONE (03:45)
--- NOTE | 2018-07-13 04:39 | NUR ---
SLING SIZE MEDIUM APPLIED TO PT R ARM, ADJUST SO THAT ARM IS RESTING PARALLEL TO FLOOR
[2018-07-13 04:49] VITALS: BP 131/80
== END 2018-07-13 04:49 | disposition home or self-care (01) ==
LOC: MED 00:24
DX: S06.0X0A Concussion without loss of consciousness, initial encounter (principal); H05.221 Edema of right orbit; F10.129 Alcohol abuse with intoxication, unspecified; I25.2 Old myocardial infarction; I10 Essential (primary) hypertension; E11.9 Type 2 diabetes mellitus without complications; Z79.899 Other long term (current) drug therapy; Z79.82 Long term (current) use of aspirin; W18.30XA Fall on same level, unspecified, initial encounter; Y93.89 Activity, other specified; Y92.89 Other specified places as the place of occurrence of the external cause; Y99.8 Other external cause status
CPT/HCPCS: 70450; 71045; 73020; 99284; Q0092

== ENCOUNTER 2020-10-18 17:21 | Emergency (ER) | payer OTHER, MEDICAID ==
[~2020-10-18] VITALS: Ht 175.3 cm; Wt 95.3 kg
[~2020-10-18 17:21] MED LIST changes: +AMLO-3 PO; -AMLO5TAB4 PO; -PANT40EC28 PO; +PANT40EC56 PO
[2020-10-18 17:24] VITALS: BP 145/78
--- NOTE | 2020-10-18 17:33 | NUR ---
Pt w/c assisted to bed 11.
--- NOTE | 2020-10-18 17:45 | NUR ---
70 Y/O MALE C/O RIGHT FOOT SWELLING X3 YEARS. PT RATES PAIN OVER 10/10 THAT IS BURNING AND "INDESCRIBABLE". PT STATES HE HAS NUMBNESS IN BOTH FEET. ON ASSESSMENT, NON-PITTING EDEMA ON R FOOT WITH SLIGHT REDDNESS AND BRUISING. PT UNABLE TO FEEL SENSATION, WIGGLE TOES, OR MOVE FOOT. PT FOOT IS INVERTED WITH CALLUSES ON SIDE OF FOOT, PT STATES THAT HE CAN "KIND OF WALK". PT W/C ASSISTED INTO HOSPITAL. CAP REFILL <3 SECONDS. SKIN INTACT. PT DENIES RECENT INJURY AND STATES THAT PAIN IS UNBEARABLE NOW. PT DENIES N/V/SOB/FEVER. PT TAKES NORCO 10-325 AND GABAPENTIN WITHOUT RELIEF. PT STATES "WAITING FOR REFERRAL FOR HIS DR FOR YEARS". PT IS A/O X4 WITH EVEN AND UNLABORED RESPIRATIONS. PT LAYING IN BED WITH BED IN LOWEST POSITION, BRAKES LOCKED, X1 SIDERAIL UP. DENIES: HTN, NEUROPATHY NKDA
--- NOTE | 2020-10-18 18:11 | NUR ---
DR FRANCISCO AT BEDSIDE
[2020-10-18] MEDS ORDERED: HYDROcodone/APAP 5/325 MG 1 TAB TAB PO ONE (18:15)
[2020-10-18] MEDS ORDERED: cephALEXin 500 MG CAP PO ONE (18:15)
--- NOTE | 2020-10-18 18:45 | NUR ---
RAD AT BEDSIDE
--- NOTE | 2020-10-18 19:22 | NUR ---
GAVE REPORT TO JACKY GRANT, TRANSFER OF CARE AT THIS TIME
--- NOTE | 2020-10-18 19:23 | NUR ---
RECEIVED REPORT FROM RUDY WALLACE FOR CONTINUITY OF CARE
[2020-10-18] MEDS ORDERED: ACET-9525 PO (19:24)
[2020-10-18] MEDS ORDERED: CEPH500C16 PO ×2 (19:24→21:36)
[2020-10-18 19:35] VITALS: BP 145/78
--- NOTE | 2020-10-18 19:37 | NUR ---
Patient discharged with v/s stable. Written and verbal after care instructions given and explained. Patient alert, oriented and verbalized understanding of instructions. Wheel Chair Assisted with steady gait. All questions addressed prior to discharge. ID band removed. Patient advised to follow up with PMD. Rx of HYDROCODONE AND CEPHALEXIN given. Patient educated on indication of medication including possible reaction and side effects. Opportunity to ask questions provided and answered.
[2020-10-18] MEDS ORDERED: ACET-9527 PO (21:36)
== END 2020-10-18 19:37 | disposition home or self-care (01) ==
LOC: MED 17:21
DX: L03.115 Cellulitis of right lower limb (principal); I11.9 Hypertensive heart disease without heart failure; Z79.899 Other long term (current) drug therapy
CPT/HCPCS: 73630; 99283

== ENCOUNTER 2021-04-19 19:38 | Emergency (ER) | payer OTHER, MEDICAID ==
[~2021-04-19] VITALS: Ht 172.7 cm; Wt 84.4 kg
[~2021-04-19 19:38] MED LIST changes: +ACET-9527 PO; +CEPH500C16 PO; -MULT-1736 PO; +MULT-2086 PO
[2021-04-19 20:20] VITALS: BP 127/75
[2021-04-19] MEDS ORDERED: ACETAMINOPHEN 325 MG TAB PO ONE (20:35)
--- NOTE | 2021-04-19 21:00 | NUR ---
PT. ASSISTED TO BED VIA W/C
--- NOTE | 2021-04-19 21:00 | NUR ---
BIB DAUGHTER, PT. IS A 70 Y/O MALE THAT PRESENTS TO ED WITH A FEVER OF 100.3 AND STATES IT BEGAN YESTERDAY AND WENT AWAY. DENIES SOB, CHILL, FATIGUE, N/V/D. PT. ALSO DENIES ANY PAIN AT THIS TIME. DENIES GEN. WEAKNESS. PT. STATES "I'M HERE BECAUSE OF MY KIDS." SKIN IS PINK/WARM/DRY; AAOX4; HR EVEN AND REGULAR; PT DENIES ANY FEVER, CP, SOB, OR COUGH AT THIS TIME; VSS; PATIENT POSITIONED FOR COMFORT; HOB ELEVATED; BEDRAILS UP X2; BED DOWN. ER MD MADE AWARE OF PT STATUS. HX:NEUROPATHY, HTN RX:LISINOPRIL, HYDROCHLORATHIAZIDE
--- NOTE | 2021-04-19 21:05 | NUR ---
TEMP OF 100.3. TYELENOL GIVEN AND COLD COMPRESS TO THE NECK AND ARMPITS INITIATED.
--- NOTE | 2021-04-19 21:10 | NUR ---
XRAY AT BEDSIDE
--- NOTE | 2021-04-19 21:57 | NUR ---
PT. SEEN IN SUPINE POSITION, RESTING WITH EYES CLOSED. VOICES NO COMPLAINTS AT THIS TIME.
--- NOTE | 2021-04-19 22:05 | NUR ---
LISBET CLARK [phone]
[2021-04-19] MEDS ORDERED: LOPERAMIDE 2 MG CAP PO ONE (23:20)
--- NOTE | 2021-04-19 23:20 | NUR ---
[facility] SWABS COLLECTED AND WALKED TO LAB.
[2021-04-19] MEDS ORDERED: LOPE-289 PO (23:24)
[2021-04-20] MEDS ORDERED: LOPE-289 PO (00:21)
[2021-04-20 00:25] VITALS: BP 128/92
--- NOTE | 2021-04-20 00:25 | NUR ---
Patient discharged with v/s stable. Written and verbal after care instructions given and explained. Patient alert, oriented and verbalized understanding of instructions. Ambulatory with steady gait. All questions addressed prior to discharge. ID band removed. Patient advised to follow up with PMD. Rx of IMODIUM A-D given. Patient educated on indication of medication including possible reaction and side effects. Opportunity to ask questions provided and answered.
== END 2021-04-20 00:25 | disposition home or self-care (01) ==
LOC: MED 19:38
DX: R19.7 Diarrhea, unspecified (principal); Z20.822 Contact with and (suspected) exposure to COVID-19; R50.9 Fever, unspecified; I10 Essential (primary) hypertension; I25.2 Old myocardial infarction; Z79.899 Other long term (current) drug therapy; Z79.82 Long term (current) use of aspirin
CPT/HCPCS: 71045; 87426; 99284; Q0092; U0003

== ENCOUNTER 2022-05-03 18:29 | Emergency (ER) | payer OTHER, MEDICAID ==
[~2022-05-03] VITALS: Ht 170.2 cm; Wt 89.8 kg
[~2022-05-03 18:29] MED LIST changes: +LOPE-289 PO
[2022-05-03 18:32] VITALS: BP 119/74
--- NOTE | 2022-05-03 18:35 | NUR ---
pt wheelchair assist to bed 07
--- NOTE | 2022-05-03 18:45 | NUR ---
71 y/o male, c/o bl feet pain that started yetserday, pt states he has a giant bump on both feet. 04/29. pmh: htn, neuropathy nka
--- NOTE | 2022-05-03 19:19 | NUR ---
GAVE REPORT TO MARCELLO Garcia RN
--- NOTE | 2022-05-03 19:20 | NUR ---
RECEIVED REPORT FROM BERT MYERS.
[2022-05-03] MEDS ORDERED: LIDOCAINE/EPI MPF 1%1:200000 30 ML VIAL INJ ONE (21:02)
[2022-05-03 21:30] VITALS: BP 119/74
--- NOTE | 2022-05-03 21:59 | NUR ---
Patient does not wish to proceed with medical care recommended by DR. BLEDSOE. Patient given information related to possible complications, up to and including , which could occur as a result of leaving hospital at this time. Patient verbalizes understanding of risks involved leaving against medical advice. Patient has signed AMA form. DX: *SEPTIC ARTHRITIS
[2022-05-03 22:18] LABS: APPEARANCE,UNSPUN,BODY FLUID CLOUDY (CLEAR); SPECIMENTYPE,BODY FLUID SYNOVIAL
[2022-05-03 22:19] LABS: COLOR,BODY FLUID RED (LT YELLOW); TOTAL VOLUME,BODY FLUID 6.5 mL; WBC, BODY FLUID TNTC /cu. mm.
[2022-05-03 22:21] LABS: APPEARANCE,SPUN,BODY FLUID CLOUDY (CLEAR)
[2022-05-03 22:34] LABS: GLUCOSE,BODY FLUID 6 mg/dL
--- NOTE | 2022-05-04 10:41 | NUR ---
called phone number on file, straight to voicemail. son on file called at this time, will let pt know to follow up with pcp or to come back in for positive cultures.
== END 2022-05-03 21:30 | disposition left against medical advice (07) ==
LOC: MED 18:29
DX: L03.116 Cellulitis of left lower limb (principal); I10 Essential (primary) hypertension; Z79.899 Other long term (current) drug therapy
CPT/HCPCS: 20605; 36415; 73610; 82945; 84157; 87070; 87075; 87205; 89051; 99284; J2001; Q0092

== ENCOUNTER 2022-05-04 22:16 | Inpatient (IN) | payer OTHER, MEDICAID ==
[~2022-05-04] VITALS: Ht 170.2 cm; Wt 95.3 kg
[2022-05-04 22:21] VITALS: BP 104/79
[2022-05-04] MEDS ORDERED: VANCOMYCIN 1,000 MG in DEXTROSE 5% 250 ML IV ONE (22:55)
[2022-05-04] MEDS ORDERED: KETOROLAC 30 MG/ML VIAL IVP ONE (22:55)
[2022-05-04] MEDS ORDERED: cefTRIAXone 1,000 MG VIAL ONE (23:02)
[2022-05-04] MEDS ORDERED: VANCOMYCIN 1,000 MG VIAL ONE (23:03)
[2022-05-04 23:13] LABS: HEMATOCRIT 41.9 % (36-52); HEMOGLOBIN 14.4 g/dL (12.0-18.0); MEAN CORPUSCULAR HEMOGLOBIN 32 pg (27-31); MEAN CORPUSCULAR HGB CONC 34 g/dL (33-37); PLATELET COUNT (AUTO) 232 K/uL (140-450); RED BLOOD CELL COUNT(AUTO) 4.56 MIL/uL (4.20-6.10); RED CELL DISTRIBUTION WIDTH 14.8 % (11.6-13.7); WHITE BLOOD COUNT (AUTO) 21.5 K/uL (4.8-10.8)
[2022-05-04] MEDS ORDERED: ONDANSETRON 4 MG/2 ML VIAL IVP ONE (23:25)
[2022-05-04] MEDS ORDERED: MORPHINE SULFATE 2 MG/ML SYR IVP ONE (23:25)
[2022-05-04 23:41] LABS: ALBUMIN 1.9 g/dL (3.4-5.0); ANION GAP 11.2 (8-16); CARBON DIOXIDE 28.5 mmol/L (21-32); CREATININE 1.2 mg/dL (0.6-1.3); POTASSIUM 3.7 mmol/L (3.5-5.1)
[2022-05-04 23:47] LABS: LYMPHOCYTES % (MANUAL) 4 % (20-46); MONOCYTES % (MANUAL) 7 % (5-12)
[2022-05-05] MEDS ORDERED: NACL 0.9% 2,000 ML IV ONE (01:10)
[2022-05-05] MEDS ORDERED: MORPHINE SULFATE 2 MG/ML SYR ONE (01:45)
[2022-05-05] MEDS ORDERED: ONDANSETRON 4 MG/2 ML VIAL ONE ×2 (01:46→18:43)
[2022-05-05] MEDS ORDERED: MORPHINE SULFATE 2 MG/ML SYR IVP PRN (04:35)
[2022-05-05] MEDS ORDERED: NACL 0.9% 1,000 ML IV ONE (04:35)
[2022-05-05] MEDS ORDERED: PIPERACILLIN/TAZOBACTAM 3.375 GM in DEXTROSE 5% 50 ML IV ONE (04:35)
[2022-05-05] MEDS ORDERED: PIPERACILLIN/TAZOBACTAM 3.375 GM VIAL IV ONE ×3 (05:22→21:20)
[2022-05-05] MEDS ORDERED: DILTIAZEM 25 MG/5 ML VIAL IVP SCH (07:05)
[2022-05-05] MEDS ORDERED: DOCUSATE SODIUM 100 MG GELCAP PO PRN (07:50)
[2022-05-05] MEDS ORDERED: VANCOMYCIN PER PHARMACY MC PRN (07:50)
[2022-05-05] MEDS ORDERED: ONDANSETRON 4 MG/2 ML VIAL IVP PRN (07:50)
[2022-05-05] MEDS ORDERED: POTASSIUM CHLORIDE 10 MEQ TABER PO PRN (07:50)
[2022-05-05] MEDS ORDERED: ACETAMINOPHEN 325 MG TAB PO PRN (07:50)
[2022-05-05] MEDS ORDERED: MAG SULF 2000 MG/WATER PREMIX 50 ML IV PRN (07:50)
[2022-05-05] MEDS ORDERED: NOREPINEPHRINE 4 MG in DEXTROSE 5% 250 ML IV PRN ×2 (08:05→08:15)
[2022-05-05] MEDS ORDERED: AMIODARONE 150 MG in DEXTROSE 5% 100 ML IV SCH (08:30)
[2022-05-05] MEDS: AMIODARONE 450 MG in DEXTROSE 5% 250 ML IV SCH (09:41)
[2022-05-05 09:56] LABS: BASOPHILS % (AUTO) 0.1 % (0.0-2.0); HEMATOCRIT 36.3 % (36-52); HEMOGLOBIN 12.3 g/dL (12.0-18.0); LYMPHOCYTES % (AUTO) 5.6 % (20.5-51.1); MEAN CORPUSCULAR HEMOGLOBIN 31 pg (27-31); MEAN CORPUSCULAR HGB CONC 34 g/dL (33-37); MONOCYTES # (AUTO) 1.7 K/uL (0.8-1.0); MONOCYTES % (AUTO) 9.5 % (1.7-9.3); NEUTROPHILS # (AUTO) 15.2 K/uL (1.8-7.7); NEUTROPHILS % (AUTO) 84.8 % (42.2-75.2); PLATELET COUNT (AUTO) 195 K/uL (140-450); RED BLOOD CELL COUNT(AUTO) 3.94 MIL/uL (4.20-6.10); RED CELL DISTRIBUTION WIDTH 14.5 % (11.6-13.7)
[2022-05-05 10:27] LABS: ANION GAP 11.8 (8-16); CARBON DIOXIDE 27.6 mmol/L (21-32); CREATININE 0.9 mg/dL (0.6-1.3); POTASSIUM 3.4 mmol/L (3.5-5.1)
[2022-05-05 10:28] LABS: PROTHROMBIN TIME 11.6 secs (10.8-13.4)
[2022-05-05] MEDS ORDERED: POTASSIUM CHLORIDE 10 MEQ TABER PO ONE (12:15)
[2022-05-05] MEDS: PIPERACILLIN/TAZOBACTAM 3.375 GM in NACL 0.9% 50 ML IV SCH ×2 (12:27→21:25)
[2022-05-05] MEDS: VANCOMYCIN 750 MG in DEXTROSE 5% 250 ML IV SCH (13:19)
[2022-05-05 15:00] VITALS: BP 110/77
[2022-05-05] MEDS ORDERED: KCL 20 MEQ/WATER INJ PREMIX 100 ML IV ONE (15:00)
[2022-05-05 16:00] VITALS: BP 126/80
[2022-05-05] MEDS ORDERED: BUPIVACAINE-MPF 0.25% 30 ML VIAL INJ ONE (16:40)
[2022-05-05 17:00] VITALS: BP 117/79
[2022-05-05 17:03] LABS: BARBITURATE, URINE NEGATIVE ng/ml (NEG <=200); BENZODIAZEPINE, URINE NEGATIVE ng/mL (NEG <=200); CANNABINOID, URINE NEGATIVE ng/mL (NEG <=50); COCAINE, URINE NEGATIVE ng/mL (NEG <=300); OPIATE, URINE POSITIVE ng/mL (NEG <=2000); PHENCYCLIDINE SCREEN,URINE NEGATIVE ng/mL (NEG <=25)
[2022-05-05] MEDS ORDERED: fentaNYL citrate 0.05 MG/ML VIAL ONE (17:08)
[2022-05-05] MEDS ORDERED: ETOMIDATE 20 MG/10 ML VIAL IVP ONE ×2 (17:12→18:43)
[2022-05-05] MEDS ORDERED: SUCCINYLCHOLINE CHLORIDE 200 MG/10 ML VIAL IVP ONE (18:43)
[2022-05-05] MEDS ORDERED: METOCLOPRAMIDE 10 MG/2 ML INJ VIAL IVP PRN (19:41)
[2022-05-05 21:00] VITALS: BP 203/160
[2022-05-05 23:00] VITALS: BP 107/60
[2022-05-06] VITALS (20 sets, daily range): BP systolic 96–163; BP diastolic 46–93
[2022-05-06] MEDS: NACL 0.9% 1,000 ML IV SCH ×3 (00:51→15:29)
[2022-05-06] MEDS ORDERED: PIPERACILLIN/TAZOBACTAM 3.375 GM VIAL IV ONE (00:59)
[2022-05-06] MEDS: VANCOMYCIN 750 MG in DEXTROSE 5% 250 ML IV SCH (01:08)
[2022-05-06] MEDS: PIPERACILLIN/TAZOBACTAM 3.375 GM in NACL 0.9% 50 ML IV SCH ×4 (03:53→20:37)
[2022-05-06 05:52] LABS: BASOPHILS % (AUTO) 0.2 % (0.0-2.0); EOSINOPHILS % (AUTO) 0.1 % (0.0-4.0); HEMATOCRIT 33.8 % (36-52); HEMOGLOBIN 11.5 g/dL (12.0-18.0); LYMPHOCYTES # (AUTO) 1.3 K/uL (2.0-11.5); LYMPHOCYTES % (AUTO) 8.1 % (20.5-51.1); MEAN CORPUSCULAR HEMOGLOBIN 32 pg (27-31); MEAN CORPUSCULAR HGB CONC 34 g/dL (33-37); MEAN CORPUSCULAR VOLUME 92.7 fL (80-94); MONOCYTES # (AUTO) 1.5 K/uL (0.8-1.0); MONOCYTES % (AUTO) 9.5 % (1.7-9.3); NEUTROPHILS % (AUTO) 82.1 % (42.2-75.2); PLATELET COUNT (AUTO) 236 K/uL (140-450); RED BLOOD CELL COUNT(AUTO) 3.64 MIL/uL (4.20-6.10); RED CELL DISTRIBUTION WIDTH 14.5 % (11.6-13.7); WHITE BLOOD COUNT (AUTO) 15.8 K/uL (4.8-10.8)
[2022-05-06 06:42] LABS: ANION GAP 8.6 (8-16); CARBON DIOXIDE 28.9 mmol/L (21-32); CREATININE 0.8 mg/dL (0.6-1.3); POTASSIUM 3.5 mmol/L (3.5-5.1)
[2022-05-06] MEDS: HYDROmorphone 1 MG/ML AMP IVP PRN ×2 (07:44→17:57)
[2022-05-06] MEDS: AMIODARONE 450 MG in DEXTROSE 5% 250 ML IV SCH (11:38)
[2022-05-06] MEDS: VANCOMYCIN 1,000 MG in DEXTROSE 5% 250 ML IV SCH (13:14)
[2022-05-06] MEDS: AMIODARONE 200 MG TAB PO SCH ×2 (16:19→20:35)
[2022-05-06] MEDS: LORazepam 2 MG/ML VIAL IVP PRN (20:36)
[2022-05-07] VITALS (9 sets, daily range): BP systolic 113–152; BP diastolic 65–84
[2022-05-07] MEDS: VANCOMYCIN 1,000 MG in DEXTROSE 5% 250 ML IV SCH ×2 (00:25→12:50)
[2022-05-07] MEDS: NACL 0.9% 1,000 ML IV SCH ×2 (00:31→12:50)
[2022-05-07] MEDS: MORPHINE SULFATE 2 MG/ML SYR IVP PRN (00:53)
[2022-05-07 05:39] LABS: BASOPHILS % (AUTO) 0.2 % (0.0-2.0); HEMATOCRIT 33.5 % (36-52); LYMPHOCYTES # (AUTO) 1.1 K/uL (2.0-11.5); LYMPHOCYTES % (AUTO) 6.1 % (20.5-51.1); MEAN CORPUSCULAR HEMOGLOBIN 31 pg (27-31); MEAN CORPUSCULAR HGB CONC 33 g/dL (33-37); MEAN CORPUSCULAR VOLUME 94.6 fL (80-94); MONOCYTES # (AUTO) 1.8 K/uL (0.8-1.0); MONOCYTES % (AUTO) 9.7 % (1.7-9.3); NEUTROPHILS # (AUTO) 15.2 K/uL (1.8-7.7); PLATELET COUNT (AUTO) 256 K/uL (140-450); RED BLOOD CELL COUNT(AUTO) 3.54 MIL/uL (4.20-6.10); RED CELL DISTRIBUTION WIDTH 14.7 % (11.6-13.7); WHITE BLOOD COUNT (AUTO) 18.1 K/uL (4.8-10.8)
[2022-05-07 05:59] LABS: CARBON DIOXIDE 31.6 mmol/L (21-32); CREATININE 0.7 mg/dL (0.6-1.3); POTASSIUM 4.6 mmol/L (3.5-5.1)
[2022-05-07] MEDS: AMIODARONE 200 MG TAB PO SCH ×2 (08:50→22:05)
[2022-05-07] MEDS: LORazepam 2 MG/ML VIAL IVP PRN (08:52)
[2022-05-07] MEDS: GAUZE TP SCH ×2 (12:51→12:52)
[2022-05-07] MEDS ORDERED: ALBUTEROL SULFATE/IPRATROPIU 3 ML SOL IH ONE ×2 (19:21→19:27)
[2022-05-07] MEDS ORDERED: FUROSEMIDE 40 MG/4 ML VIAL IVP ONE ×2 (19:40→20:50)
[2022-05-07] MEDS ORDERED: PIPERACILLIN/TAZOBACTAM 3.375 GM VIAL IV ONE (23:15)
[2022-05-07] MEDS: PIPERACILLIN/TAZOBACTAM 3.375 GM in DEXTROSE 5% 50 ML IV SCH (23:37)
[2022-05-08] VITALS: BP 118/87
[2022-05-08] MEDS: VANCOMYCIN 1,000 MG in DEXTROSE 5% 250 ML IV SCH ×2 (01:27→13:24)
[2022-05-08 04:00] VITALS: BP 117/71
[2022-05-08] MEDS ORDERED: PIPERACILLIN/TAZOBACTAM 3.375 GM VIAL IV ONE (05:38)
[2022-05-08] MEDS: PIPERACILLIN/TAZOBACTAM 3.375 GM in DEXTROSE 5% 50 ML IV SCH ×4 (05:53→23:41)
[2022-05-08 06:53] LABS: BASOPHILS % (AUTO) 0.3 % (0.0-2.0); EOSINOPHILS % (AUTO) 0.3 % (0.0-4.0); HEMATOCRIT 30.1 % (36-52); LYMPHOCYTES # (AUTO) 0.9 K/uL (2.0-11.5); LYMPHOCYTES % (AUTO) 7.1 % (20.5-51.1); MEAN CORPUSCULAR HEMOGLOBIN 31 pg (27-31); MEAN CORPUSCULAR HGB CONC 33 g/dL (33-37); MEAN CORPUSCULAR VOLUME 94.1 fL (80-94); MONOCYTES # (AUTO) 0.8 K/uL (0.8-1.0); MONOCYTES % (AUTO) 5.8 % (1.7-9.3); NEUTROPHILS # (AUTO) 11.3 K/uL (1.8-7.7); NEUTROPHILS % (AUTO) 86.5 % (42.2-75.2); PLATELET COUNT (AUTO) 248 K/uL (140-450)
[2022-05-08 07:07] LABS: ANION GAP 6.6 (8-16); CARBON DIOXIDE 34.1 mmol/L (21-32); CREATININE 0.8 mg/dL (0.6-1.3); POTASSIUM 3.7 mmol/L (3.5-5.1)
[2022-05-08 08:00] VITALS: BP 112/61
[2022-05-08] MEDS: AMIODARONE 200 MG TAB PO SCH ×2 (09:57→21:07)
[2022-05-08 12:00] VITALS: BP 108/63
[2022-05-08] MEDS: GAUZE TP SCH ×2 (13:00)
[2022-05-08 16:00] VITALS: BP 116/62
[2022-05-08 20:00] VITALS: BP 140/78
[2022-05-08] MEDS: ZOLPIDEM 10 MG TAB PO PRN (22:58)
[2022-05-09] VITALS: BP 148/72
[2022-05-09] MEDS: VANCOMYCIN 1,000 MG in DEXTROSE 5% 250 ML IV SCH ×2 (02:30→13:50)
[2022-05-09 04:00] VITALS: BP 163/94
[2022-05-09] MEDS: ALBUTEROL SULFATE/IPRATROPIU 3 ML SOL IH PRN (04:38)
[2022-05-09] MEDS: PIPERACILLIN/TAZOBACTAM 3.375 GM in DEXTROSE 5% 50 ML IV SCH ×2 (06:30→11:14)
[2022-05-09 06:51] LABS: BASOPHILS % (AUTO) 0.1 % (0.0-2.0); EOSINOPHILS % (AUTO) 0.3 % (0.0-4.0); HEMATOCRIT 30.4 % (36-52); HEMOGLOBIN 10.2 g/dL (12.0-18.0); LYMPHOCYTES # (AUTO) 1.5 K/uL (2.0-11.5); LYMPHOCYTES % (AUTO) 10.8 % (20.5-51.1); MEAN CORPUSCULAR HEMOGLOBIN 31 pg (27-31); MEAN CORPUSCULAR HGB CONC 33 g/dL (33-37); MEAN CORPUSCULAR VOLUME 93.7 fL (80-94); MONOCYTES # (AUTO) 1.2 K/uL (0.8-1.0); MONOCYTES % (AUTO) 8.3 % (1.7-9.3); NEUTROPHILS # (AUTO) 11.3 K/uL (1.8-7.7); NEUTROPHILS % (AUTO) 80.5 % (42.2-75.2); PLATELET COUNT (AUTO) 251 K/uL (140-450); RED BLOOD CELL COUNT(AUTO) 3.25 MIL/uL (4.20-6.10); RED CELL DISTRIBUTION WIDTH 14.5 % (11.6-13.7)
[2022-05-09 07:28] LABS: ANION GAP 6.2 (8-16); CARBON DIOXIDE 34.7 mmol/L (21-32); CREATININE 0.8 mg/dL (0.6-1.3); POTASSIUM 3.9 mmol/L (3.5-5.1)
[2022-05-09 08:00] VITALS: BP 120/61
[2022-05-09] MEDS: AMIODARONE 200 MG TAB PO SCH ×2 (08:08→22:12)
[2022-05-09] MEDS: MORPHINE SULFATE 2 MG/ML SYR IVP PRN ×3 (09:31→22:32)
[2022-05-09 12:00] VITALS: BP 126/68
[2022-05-09] MEDS: GAUZE TP SCH ×2 (13:50)
[2022-05-09 16:00] VITALS: BP 133/73
[2022-05-09 20:00] VITALS: BP 124/60
[2022-05-09] MEDS: ZOLPIDEM 10 MG TAB PO PRN (22:48)
[2022-05-10] VITALS: BP 148/78
[2022-05-10] MEDS: VANCOMYCIN 1,000 MG in DEXTROSE 5% 250 ML IV SCH ×2 (00:40→13:00)
[2022-05-10 04:00] VITALS: BP 143/88
[2022-05-10 07:23] LABS: ANION GAP 8.6 (8-16); BASOPHILS % (AUTO) 0.2 % (0.0-2.0); CARBON DIOXIDE 34.4 mmol/L (21-32); CREATININE 0.7 mg/dL (0.6-1.3); EOSINOPHILS % (AUTO) 0.4 % (0.0-4.0); HEMATOCRIT 31.6 % (36-52); HEMOGLOBIN 10.5 g/dL (12.0-18.0); LYMPHOCYTES # (AUTO) 1.1 K/uL (2.0-11.5); LYMPHOCYTES % (AUTO) 9.2 % (20.5-51.1); MEAN CORPUSCULAR HEMOGLOBIN 31 pg (27-31); MEAN CORPUSCULAR HGB CONC 33 g/dL (33-37); MEAN CORPUSCULAR VOLUME 93.6 fL (80-94); MONOCYTES % (AUTO) 7.9 % (1.7-9.3); NEUTROPHILS % (AUTO) 82.3 % (42.2-75.2); PLATELET COUNT (AUTO) 270 K/uL (140-450); RED BLOOD CELL COUNT(AUTO) 3.37 MIL/uL (4.20-6.10); RED CELL DISTRIBUTION WIDTH 14.9 % (11.6-13.7); WHITE BLOOD COUNT (AUTO) 12.1 K/uL (4.8-10.8)
[2022-05-10] MEDS: ALBUTEROL SULFATE/IPRATROPIU 3 ML SOL IH PRN (07:54)
[2022-05-10 08:00] VITALS: BP 149/86
[2022-05-10] MEDS: AMIODARONE 200 MG TAB PO SCH (08:37)
[2022-05-10 12:00] VITALS: BP 149/86
[2022-05-10] MEDS ORDERED: VANC1PLA7 IV (13:50)
== END 2022-05-10 17:36 | DRG 853 ==
LOC: MED 22:16 → MTU 05-05 04:36 → MIC 05-05 15:20 → MTU 05-07 13:11
PROVIDERS: ADMIT Family Medicine; ATTEND Family Medicine
PROC: 06HY33Z Insertion of Infusion Device into Lower Vein, Percutaneous Approach (ICD-10-PCS; 2022-05-04)
PROC: B54BZZA Ultrasonography of Right Lower Extremity Veins, Guidance (ICD-10-PCS; 2022-05-04)
PROC: 0SPG0JZ Removal of Synthetic Substitute from Left Ankle Joint, Open Approach (ICD-10-PCS; 2022-05-05)
PROC: 0SBG0ZZ Excision of Left Ankle Joint, Open Approach (ICD-10-PCS; principal; 2022-05-05 17:00)
PROC: 5A09357 Assistance with Respiratory Ventilation, Less than 24 Consecutive Hours, Continuous Positive Airway Pressure (ICD-10-PCS; 2022-05-08)
DX: A41.9 Sepsis, unspecified organism (principal); E43 Unspecified severe protein-calorie malnutrition; R65.21 Severe sepsis with septic shock; J69.0 Pneumonitis due to inhalation of food and vomit; J96.01 Acute respiratory failure with hypoxia; M00.9 Pyogenic arthritis, unspecified; E87.1 Hypo-osmolality and hyponatremia; L03.116 Cellulitis of left lower limb; K21.9 Gastro-esophageal reflux disease without esophagitis; E78.5 Hyperlipidemia, unspecified; I10 Essential (primary) hypertension; I25.10 Atherosclerotic heart disease of native coronary artery without angina pectoris; E87.6 Hypokalemia; E87.8 Other disorders of electrolyte and fluid balance, not elsewhere classified; A49.1 Streptococcal infection, unspecified site; I48.0 Paroxysmal atrial fibrillation; Z20.822 Contact with and (suspected) exposure to COVID-19; L97.519 Non-pressure chronic ulcer of other part of right foot with unspecified severity; E83.51 Hypocalcemia; R74.01 Elevation of levels of liver transaminase levels; Z79.891 Long term (current) use of opiate analgesic; Z79.899 Other long term (current) drug therapy; I25.2 Old myocardial infarction; Z86.73 Personal history of transient ischemic attack (TIA), and cerebral infarction without residual deficits; Z79.01 Long term (current) use of anticoagulants; Z68.32 Body mass index [BMI] 32.0-32.9, adult
CPT/HCPCS: 36415; 36556; 36600; 70450; 71045; 71275; 73610; 73630; 73701; 77003; 80048; 80053; 80202; 80305; 82803; 83605; 83735; 83880; 85025; 85379; 85610; 85651; 85730; 86140; 87040; 87070; 87075; 87081; 87186; 87205; 88300; 93005; 94640; 96365; 96366; 96367; 96375; 97163-GP; 97530; 99291; J0282; J0330; J0696; J1170; J1644; J1885; J1940; J2060; J2270; J2405; J2543; J3010; J3370; J3480; J3490; J7060; Q0092; Q9967

== ENCOUNTER 2023-03-10 12:35 | Emergency (ER) | payer OTHER ==
[~2023-03-10] VITALS: Ht 165.1 cm; Wt 77.1 kg
[~2023-03-10 12:35] MED LIST changes: -ACET-8386 PO; -ACET-9527 PO; -CAPT25TA10 PO; -CEPH500C16 PO; -FURO20TA8 PO; -GABA400C PO; -LOPE-289 PO; -MULT-2086 PO; -ORE25 PO; -PANT40EC56 PO; -PROP20TA29 PO; -THIA-34 PO; +VANC1PLA7 IV
[2023-03-10 12:49] VITALS: BP 104/67; PULSE 76; RESP 17; TEMP 97.7; O2SAT 95
[2023-03-10] MEDS ORDERED: KETOROLAC 60 MG/2 ML VIAL IM ONE (16:55)
[2023-03-10 18:17] VITALS: O2SAT 98
[2023-03-10 18:27] VITALS: BP 111/74; PULSE 82; RESP 18
== END 2023-03-10 18:28 | disposition home or self-care (01) ==
LOC: MED 12:35
DX: S93.402A Sprain of unspecified ligament of left ankle, initial encounter (principal); S93.401A Sprain of unspecified ligament of right ankle, initial encounter; S09.90XA Unspecified injury of head, initial encounter; I10 Essential (primary) hypertension; Z79.899 Other long term (current) drug therapy; W05.0XXA Fall from non-moving wheelchair, initial encounter; Y93.89 Activity, other specified; Y92.89 Other specified places as the place of occurrence of the external cause; Y99.8 Other external cause status
CPT/HCPCS: 70450; 73610; 99284

== ENCOUNTER 2023-08-01 14:30 | Emergency (ER) | payer OTHER ==
[~2023-08-01] VITALS: Ht 172.7 cm; Wt 117.9 kg
[2023-08-01 14:45] VITALS: BP 130/70; PULSE 54; RESP 18; TEMP 98.1; O2SAT 96
[2023-08-01] MEDS ORDERED: MORPHINE SULFATE 4 MG/ML SYR IM ONE (15:45)
[2023-08-01] MEDS ORDERED: ACET-503 PO (15:53)
[2023-08-01 16:23] VITALS: BP 113/59; PULSE 70; RESP 16; TEMP 98; O2SAT 98
== END 2023-08-01 16:25 | disposition home or self-care (01) ==
LOC: MED 14:30
DX: E11.40 Type 2 diabetes mellitus with diabetic neuropathy, unspecified (principal); I10 Essential (primary) hypertension; Z79.899 Other long term (current) drug therapy; Z79.82 Long term (current) use of aspirin; W18.39XA Other fall on same level, initial encounter; Y92.89 Other specified places as the place of occurrence of the external cause; Y93.89 Activity, other specified; Y99.8 Other external cause status
CPT/HCPCS: 81002; 96372; 99283; J2270